=== PATIENT | male | born 1990 | race Caucasian/White ===

== ENCOUNTER → 2020-11-28 | Outpatient (CLI) | payer OTHER ==
--- NOTE | 2020-12-03 14:15 | CE ---
CARDIAC ELECTROPHYSIOLOGY REPORT DCG: DATE OF THE STUDY: November 28, 2020. INDICATION: Cardiac arrhythmia. REFERRING PHYSICIAN: Dr. Damon. RESULTS: The patient was monitored for 48 hours. The baseline rhythm appeared to be sinus mechanism with a minimum heart rate of 44 beats per minute. Max heart rate was 192 beats per minute and average heart rate of 81 beats per minute. Ventricular ectopic events reported rarely. Supraventricular ectopic events were reported rarely as well. No significant sinus pause or sinus arrest seen. The patient did have multiple episodes of sinus tachycardia noted. No evidence of any advanced AV block. CONCLUSION: 1. Sinus rhythm as a baseline mechanism. 2. Rare ventricular ectopic events. 3. Rare supraventricular ectopic events. 4. No evidence of significant sinus pause or sinus arrest. 5. The patient reported no symptoms. MMODL / IJN: [id number] /
== END | disposition home or self-care (01) ==
LOC: RADECHMAIN 12:16
PROVIDERS: ATTEND Internal Medicine
DX: I49.9 Cardiac arrhythmia, unspecified (principal); I49.3 Ventricular premature depolarization
CPT/HCPCS: 93225; 93226